=== PATIENT | male | born 1955 | race Caucasian/White ===

== ENCOUNTER → 2019-01-12 | Outpatient (CLI) | payer BC | LOC: COL.RAD 08:52 | DX: R97.20 Elevated prostate specific antigen [PSA] (principal) | CPT/HCPCS: A9503; Q9967 ==

== ENCOUNTER 2019-01-25 12:10 | Inpatient (IN) | payer BC ==
[~2019-01-25] VITALS: Ht 177.8 cm; Wt 83.0 kg
[2019-02-10] VITALS (13 sets, daily range): BP systolic 89–120; BP diastolic 54–81; PULSE 66–80; TEMP 97.4–98.1
[2019-02-10] MEDS ORDERED: COZAAR100 MG PO (06:03)
--- NOTE | 2019-02-10 11:10 | NUR ---
PATIENT TO ROOM 327 PER BED WITH REPORT FROM [facility] @ 1045. PT IS A/O X3 LUNGS CLEAR, MIDLINE INCISION WITH SM AMT OF REDDISH DRAINAGE SHADOWING. 2 SHARDA DRAINS TO LIS, PATE CATHETER IN PLACE WITH CLEAR YELLOWISH URINE, EPIDURAL RUNNING @ 6 MLS/HR, PT ABLE TO USE APPROPRIATELY. IV TO PUMP. PT DENIES PAIN AT THIS TIME. FAMILY AT BEDSIDE.
[2019-02-10 14:40] LABS: HEMOGLOBIN 11.5 g/dl (13.5-18.0)
[2019-02-10 14:45] LABS: HEMATOCRIT 33.5 % (42.0-52.0)
--- NOTE | 2019-02-10 18:32 | NUR ---
patient awake, alert lying on bed. with patient. denies pain or discomfort at this time. call light in reach. reported off to MARCELO Zuluaga.
--- NOTE | 2019-02-10 19:08 | NUR ---
Report to Ally RN>
--- NOTE | 2019-02-10 21:30 | NUR ---
Patient in bed, eyes closed, awakens with name called. Is alert and oriented. Has epidural catheter for pain control, site to back intact without drainage. Has IVF infusing to left hand without redness or swelling. Saravia catheter draining yellow urine with sediment noted. Saravia cath care given at this time. Patient denies pain and nausea. Taking ice chips at this time. Abdominal dressing with shadowing, giovanny drains to LIS with red drainage. Bowel sounds hypoactive, no flatus. Will monitor for changes.
[2019-02-11 00:31] VITALS: BP 109/54; PULSE 79; TEMP 98.8
--- NOTE | 2019-02-11 03:00 | NUR ---
Patient awakens easily to name, denies needs or pain at this time.
[2019-02-11 03:56] VITALS: BP 95/57; PULSE 78; TEMP 98.6
[2019-02-11 07:00] LABS: BASO % 0.3 % (0.0-2.0); EOS % 0.3 % (0-4.0); GRAN # 7.1 (1.4-6.5); GRAN % 76.2 % (42.2-75.2); HEMOGLOBIN 10.2 g/dl (13.5-18.0); LYMPH # 1.3 (1.2-3.4); LYMPH % 13.6 % (20.0-51.0); MEAN CELL VOLUME 95 fl (80.0-100.0); MEAN CORPUSCULAR HEMOGLOBIN 31 pg (27.0-31.0); MEAN CORPUSCULAR HGB CONC 33 g/dl (33.0-37.0); MEAN PLATELET VOLUME 10.4 fl (7.4-10.4); MONO # 0.9 (0.1-0.6); MONO % 9.3 % (1.7-9.3); PLATELET COUNT 175 K/mm3 (130-400); REDCELL DISTRIBUTION WIDTH-CV 11.9 % (11.5-14.5)
[2019-02-11 07:01] LABS: CALCIUM 7.8 mg/dL (8.4-10.2); CREATININE, serum 1.25 (0.66-1.25); POTASSIUM 4.4 mmol/L (3.4-5.0)
[2019-02-11 07:03] LABS: HEMATOCRIT 31.2 % (42.0-52.0)
--- NOTE | 2019-02-11 08:24 | NUR ---
Patient assisted to the chair this morning. Tolerated well. Perineal care completed by patient. Patient given warm wipes for a bed bath. Epidural in place. Site remains clean, dry, and intact. Dressing to abdomen has small amount of drainage. Mary drain in place and to low continuous suction. Denies any needs at this time. Denies pain.
[2019-02-11 08:30] VITALS: BP 102/65; PULSE 74; TEMP 98.3
--- NOTE | 2019-02-11 09:22 | NUR ---
[facility] met with the patient to discuss discharge plan. The patient lives in [place] with his (Thuy) and their daughter. He reports independence with ADLs and does not use any DME. The patient's PCP is Dr. Marshal Heller and he receives his medications at the [facility]. He reports no difficulties obtaining his meds. The patient does not have a DPOA-HC, but he was interested in obtaining a form for one. [facility] provided. The patient plans to return home with his family upon discharge. No additional needs at this time.
[2019-02-11 12:35] VITALS: BP 129/75; PULSE 67; TEMP 97.8
--- NOTE | 2019-02-11 13:58 | NUR ---
Patient resting in bed. Educated on the regular diet. Denies pain. Epidural in place. No drainage, redness, or swelling noted to site. Patient alert and oriented. Denies any further needs.
[2019-02-11 16:44] VITALS: BP 113/65; PULSE 71; TEMP 97.9
[2019-02-11 20:00] VITALS: BP 126/71; PULSE 76; TEMP 98.2
--- NOTE | 2019-02-11 20:00 | NUR ---
Patient ambulated in hallway with spouse. At this time in recliner at bedside with family and friends visiting. Denies pain. Saravia with yellow urine. Epidural at 5cc/hr, back site without redness or leaking. Denies pain at this time.
[2019-02-12 01:11] VITALS: BP 115/70; PULSE 77; TEMP 98.1
[2019-02-12 04:38] VITALS: BP 113/70; PULSE 79; TEMP 98.7
--- NOTE | 2019-02-12 05:02 | NUR ---
Patient reports no pain, epidural continues. Has 2000cc yellow urine emptied from billings. Has 20cc emptied from Mary drains.
[2019-02-12 08:27] VITALS: BP 106/69; PULSE 78; TEMP 98.2
[2019-02-12 08:35] VITALS: BP 145/61; PULSE 81; TEMP 97.5
[2019-02-12 12:26] VITALS: BP 121/66; PULSE 78; TEMP 99.4
[2019-02-12 13:40] VITALS: TEMP 98.6
--- NOTE | 2019-02-12 14:00 | NUR ---
Ambulated in halls with spouse. Activity tolerated well. Leg bag teaching done. Mary drains dc'd. Epidural dc'd by [employer]. Denied pain. Verbalized understanding of home instructions. Questions answered. Dismissed to home with spouse.
== END 2019-02-12 14:00 | disposition home or self-care (01) | DRG 708 ==
LOC: INPTSU 02-10 05:30 → SURG 02-10 07:30 → JCC 02-10 11:00
PROVIDERS: ADMIT Urology
PROC: 0VT00ZZ Resection of Prostate, Open Approach (ICD-10-PCS; principal; 2019-02-10 07:30)
PROC: 07TC0ZZ Resection of Pelvis Lymphatic, Open Approach (ICD-10-PCS; 2019-02-10 07:30)
DX: C61 Malignant neoplasm of prostate (principal); I10 Essential (primary) hypertension; M16.11 Unilateral primary osteoarthritis, right hip
CPT/HCPCS: A9284; J0690; J2250; J2370; J2405; J2704; J2710; J3010; J3480; J7120

== ENCOUNTER → 2019-11-16 | Outpatient (CLI) | payer BC ==
[~2019-11-16] MED LIST: COZAAR100 MG PO
== END ==
LOC: COL.RAD 08:29
DX: M25.551 Pain in right hip (principal)
CPT/HCPCS: J3301; Q9967

== ENCOUNTER → 2020-03-21 | Outpatient (CLI) | payer BC | LOC: COL.RAD 11:00 | DX: C61 Malignant neoplasm of prostate (principal); N20.0 Calculus of kidney; Z90.79 Acquired absence of other genital organ(s) | CPT/HCPCS: Q9967 ==

== ENCOUNTER → 2020-03-26 | Outpatient (CLI) | payer BC | LOC: COL.RAD 09:04 | DX: C61 Malignant neoplasm of prostate (principal); M16.11 Unilateral primary osteoarthritis, right hip; M17.12 Unilateral primary osteoarthritis, left knee | CPT/HCPCS: A9503 ==